=== PATIENT | male | born 1965 | race Caucasian/White ===

== ENCOUNTER 2022-06-06 21:18 | Inpatient (IN) | payer OTHER ==
[~2022-06-06] VITALS: Ht 170.2 cm; Wt 70.8 kg
[2022-06-06 22:27] LABS: BASOPHILS % 0.3 % (0.0-2.0); EOSINOPHILS % 0.6 % (0.0-5.0); HEMATOCRIT. 37.6 % (42.0-52.0); HEMOGLOBIN. 12.5 g/dL (14.0-18.0); LYMPHOCYTES % 10.3 % (20.0-50.0); MEAN CORPUSCULAR HEMOGLOBIN 31.1 pg (28.0-32.0); MEAN CORPUSCULAR VOLUME 93.6 fL (80.0-94.0); MEAN PLATELET VOLUME 7.1 fl (7.4-10.4); MONOCYTES % 7.9 % (2.0-8.0); NEUTROPHILS % 80.9 % (40.0-76.0); PLATELET 340 x1000/uL (130-400); RED BLOOD CELL COUNT 4.02 mill/uL (4.7-6.1); RED CELL DISTRIBUTION WIDTH 14.1 % (11.6-14.6)
[2022-06-06 22:34] LABS: CHLORIDE 99 mEq/L (98-107)
[2022-06-06 22:43] LABS: ETHANOL BLOOD < 10 mg/dL
[2022-06-07] MEDS ORDERED: SODIUM CHLORIDE 0.9% 1,000 ML IV ONE (02:15)
[2022-06-07] MEDS ORDERED: KETOROLAC 30MG/ML VIAL IV ONE (02:15)
[2022-06-07] MEDS ORDERED: ENOXAPARIN 100MG/ML SYR SUBCUT ONE (08:00)
[2022-06-07] MEDS ORDERED: KETOROLAC 30MG/ML VIAL IV SCH (09:00)
[2022-06-07] MEDS ORDERED: MORPHINE SULFATE 4 MG/ML CPJ (NOT FOR IM USE) IV ONE (09:15)
[2022-06-07 11:21] LABS: *AMPHETAMINES SCREEN URINE NEGATIVE (NEGATIVE); *BARBITURATES SCREEN URINE NEGATIVE (NEGATIVE); *BENZODIAZEPINES SCREEN URINE NEGATIVE (NEGATIVE); *COCAINE SCREEN URINE NEGATIVE (NEGATIVE); CANNABINOID URINE SCREEN NEGATIVE (NEGATIVE); METHADONE URINE SCREEN NEGATIVE (NEGATIVE); OPIATES URINE SCREEN NEGATIVE (NEGATIVE); PHENCYCLIDINE URINE SCREEN NEGATIVE (NEGATIVE)
[2022-06-07 12:00] VITALS: BP 129/83
[2022-06-07] MEDS ORDERED: ONDANSETRON HCL 4MG/2ML INJ IV PRN (12:00)
[2022-06-07] MEDS ORDERED: ACETAMINOPHEN 325MG TABLET PO PRN (12:00)
[2022-06-07] MEDS ORDERED: CEFTRIAXONE 1 G PREMIX 50 ML IV SCH (12:00)
[2022-06-07 13:18] VITALS: BP 129/83
[2022-06-07] MEDS: CEFTRIAXONE 1,000 MG in DEXTROSE 5% WATER 50 ML IV SCH (14:13)
[2022-06-07] MEDS: KETOROLAC 30MG/ML VIAL IV PRN ×2 (14:21→22:01)
[2022-06-07 14:42] LABS: INR 1.1; PROTHROMBIN TIME 11.7 sec (9.6-11.0)
[2022-06-07 15:57] VITALS: BP 130/78
[2022-06-07 17:08] LABS: CLARITY URINE CLEAR (CLEAR); COLOR URINE YELLOW (YELLOW); KETONES URINE NEGATIVE (NEGATIVE); LEUKOCYTE ESTERASE URINE NEGATIVE (NEGATIVE); NITRITE URINE NEGATIVE (NEGATIVE); OCCULT BLOOD URINE NEGATIVE (NEGATIVE); PH URINE 5.5 (4.5-8.0); PROTEIN URINE NEGATIVE (NEGATIVE); SPECIFIC GRAVITY URINE 1.027 (1.005-1.030); UROBILINOGEN URINE 0.2 E.U./dL (0.2-1.0)
[2022-06-07 20:00] VITALS: BP 123/75
[2022-06-07] MEDS: ENOXAPARIN 80MG/0.8ML SYR SUBCUT SCH (20:54)
[2022-06-08] VITALS: BP 122/70
[2022-06-08 04:00] VITALS: BP 112/56
[2022-06-08 06:36] LABS: BASOPHILS % 0.5 % (0.0-2.0); EOSINOPHILS % 2.6 % (0.0-5.0); HEMATOCRIT. 34.5 % (42.0-52.0); HEMOGLOBIN. 11.8 g/dL (14.0-18.0); LYMPHOCYTES % 20.4 % (20.0-50.0); MEAN CORPUSCULAR HEMOGLOBIN 31.4 pg (28.0-32.0); MEAN CORPUSCULAR VOLUME 91.9 fL (80.0-94.0); MEAN PLATELET VOLUME 7.6 fl (7.4-10.4); MONOCYTES % 10.4 % (2.0-8.0); NEUTROPHILS % 66.1 % (40.0-76.0); PLATELET 290 x1000/uL (130-400); RED BLOOD CELL COUNT 3.75 mill/uL (4.7-6.1); RED CELL DISTRIBUTION WIDTH 14.3 % (11.6-14.6)
[2022-06-08 06:59] LABS: CHLORIDE 109 mEq/L (98-107)
[2022-06-08 08:29] VITALS: BP 147/84
[2022-06-08] MEDS: ENOXAPARIN 80MG/0.8ML SYR SUBCUT SCH ×2 (09:26→20:26)
[2022-06-08 12:00] VITALS: BP 122/77
[2022-06-08] MEDS: KETOROLAC 30MG/ML VIAL IV PRN (12:36)
[2022-06-08] MEDS: CEFTRIAXONE 1,000 MG in DEXTROSE 5% WATER 50 ML IV SCH (12:36)
[2022-06-08 15:42] VITALS: BP 117/78
[2022-06-08 20:00] VITALS: BP 144/77
[2022-06-09] VITALS (7 sets, daily range): BP systolic 110–129; BP diastolic 71–83
[2022-06-09] MEDS: ENOXAPARIN 80MG/0.8ML SYR SUBCUT SCH ×2 (08:47→20:39)
[2022-06-09] MEDS: CEFTRIAXONE 1,000 MG in DEXTROSE 5% WATER 50 ML IV SCH (12:44)
== END 2022-06-09 22:45 | DRG 134 ==
LOC: ER 21:18 → 6WST 06-07 09:06 → ENRESERV 06-07 10:26
PROVIDERS: ADMIT Internal Medicine; ATTEND Internal Medicine
DX: I26.99 Other pulmonary embolism without acute cor pulmonale (principal); E87.1 Hypo-osmolality and hyponatremia; I10 Essential (primary) hypertension; F10.20 Alcohol dependence, uncomplicated; D72.829 Elevated white blood cell count, unspecified; Z87.81 Personal history of (healed) traumatic fracture; Z82.49 Family history of ischemic heart disease and other diseases of the circulatory system; Z98.890 Other specified postprocedural states; R91.8 Other nonspecific abnormal finding of lung field
CPT/HCPCS: 36415; 71045; 71275; 74176; 80048; 80053; 80305; 80320; 81003; 83605; 85025; 93970; 99285; J0696; J1650; J1885; J2270; J7030; J7060; G0480